=== PATIENT | female | born 1940 | race Caucasian/White ===

== ENCOUNTER 2017-11-13 06:55 | Day surgery (SDC) | payer OTHER, MEDICARE ==
[2017-11-12 15:03] VITALS: BMI 34.9
[2017-11-13] MEDS ORDERED: PROPOFOL 20 ML ONE ×3 (07:46)
[2017-11-13] MEDS ORDERED: SUCCINYLCHOLINE CHLORIDE 200 MG/10 ML VIAL ONE (07:47)
[2017-11-13] MEDS ORDERED: GLYCOPYRROLATE 0.2 MG/1 ML VIAL ONE (07:47)
[2017-11-13] MEDS ORDERED: ATROPINE SULFATE 1 MG/10 ML DISP.SYRIN ONE (07:48)
[2017-11-13] MEDS ORDERED: ePHEDrine SULFATE 50 MG/1 ML AMPULE ONE (08:03)
[2017-11-13 08:26] VITALS: TEMP 97.7
[2017-11-13 09:22] VITALS: BP 154/85; PULSE 48
== END 2017-11-13 09:23 | disposition home or self-care (01) ==
LOC: JASU-ENDO 06:55
PROVIDERS: ATTEND Internal Medicine Gastroenterology
PROC: 0DJD8ZZ Inspection of Lower Intestinal Tract, Via Natural or Artificial Opening Endoscopic (ICD-10-PCS; principal; 2017-11-13 08:00)
DX: Z86.010 Personal history of colon polyps (principal); K57.30 Diverticulosis of large intestine without perforation or abscess without bleeding